=== PATIENT | female | born 1990 | race Caucasian/White ===

== ENCOUNTER 2022-09-23 11:53 | Outpatient (CLI) | payer OTHER | END 2022-09-23 12:54 | disposition home or self-care (01) | LOC: NST 11:53 | PROVIDERS: ATTEND Obstetrics & Gynecology Gynecology | DX: Z34.83 Encounter for supervision of other normal pregnancy, third trimester (principal) ==

== ENCOUNTER 2022-09-24 09:43 | Outpatient (CLI) | payer OTHER | END 2022-09-24 11:52 | disposition home or self-care (01) | LOC: NST 09:43 | PROVIDERS: ATTEND Obstetrics & Gynecology Maternal & Fetal Medicine | DX: Z34.83 Encounter for supervision of other normal pregnancy, third trimester (principal) ==

== ENCOUNTER 2022-10-24 10:15 | Inpatient (IN) | payer OTHER ==
[~2022-10-24] VITALS: Ht 154.9 cm; Wt 2.7 kg
[2022-10-30] MEDS ORDERED: CLARITIN10 M1 PO (07:49)
[2022-10-30] MEDS ORDERED: PRENA1 TRUE CO1 EACH PO (07:49)
[2022-10-30] MEDS ORDERED: PEPCID AC20 MG PO (07:50)
[2022-11-01] MEDS ORDERED: OXYC1TAB9 PO (11:01)
[2022-11-01] MEDS ORDERED: KETO10TA2 PO (11:01)
== END 2022-11-01 14:25 | disposition home or self-care (01) | DRG 788 ==
LOC: LDR 10-30 07:00 → O/R 10-30 09:06 → OB/GYN 10-30 09:06 → LDR 10-30 10:15 → OB/GYN 10-30 10:34 → LDR 10-30 13:45 → OB/GYN 11-01 14:25
PROVIDERS: ADMIT Obstetrics & Gynecology; ATTEND Obstetrics & Gynecology
PROC: 4A1HXCZ Monitoring of Products of Conception, Cardiac Rate, External Approach (ICD-10-PCS; 2022-10-30)
PROC: 10D00Z1 Extraction of Products of Conception, Low, Open Approach (ICD-10-PCS; principal; 2022-10-30 07:00)
DX: O34.211 Maternal care for low transverse scar from previous cesarean delivery (principal); Z3A.39 39 weeks gestation of pregnancy; Z37.0 Single live birth; Z20.822 Contact with and (suspected) exposure to COVID-19

== ENCOUNTER 2022-10-24 13:57 | Outpatient (CLI) | payer OTHER | END 2022-10-24 16:00 | disposition home or self-care (01) | LOC: NST 13:57 | PROVIDERS: ATTEND Obstetrics & Gynecology Gynecology | DX: Z34.83 Encounter for supervision of other normal pregnancy, third trimester (principal) ==

== ENCOUNTER 2025-01-20 06:28 | Day surgery (SDC) | payer OTHER ==
[2025-01-12 10:24] VITALS: BP 121/84
[2025-01-12 10:48] LABS: PH,URINE 7.5 (5.0-8.0); URINE APPEARANCE Clear; URINE BILIRRUBIN Negative (NEGATIVE); URINE BLOOD Negative; URINE COLOR Yellow; URINE GLUCOSE Negative (NEGATIVE); URINE KETONE Negative (NEGATIVE); URINE LEUKOCYTE Negative; URINE NITRATE Negative; URINE PROTEIN Negative (NEGATIVE); URINE UROBILINOGEN 0.2 E.U./dl
[2025-01-12 10:53] LABS: URINE BACTERIA 78.3 uL (0.0-1933); URINE EPITHELIAL CELLS 6.4 uL (0.0-38.8)
[2025-01-12 11:03] LABS: URINE RBC 1.7 uL (0.0-20.8); URINE WBC 0.4 uL (0.0-23.2)
[2025-01-12 11:08] LABS: HEMATOCRIT 40.1 % (36.0-45.00); MEAN CELL VOLUME 86.3 fL (80.00-100.00); MEAN CORPUSCULAR HEMOGLOBIN 30.2 pg (27.00-32.0); PLATELET COUNT 321 K/uL (150-450); RED BLOOD COUNT 4.65 M/uL (4.00-6.00); RED CELL DISTRIBUTION WIDTH 14.3 % (11.5-14.5)
[2025-01-12 11:21] LABS: INR 1.02; PARTIAL THROMBOPLASTIN TIME 34.7 SECONDS (22.0-34.0); PROTHROMBIN TIME 11.1 SECONDS (9.0-11.5)
[2025-01-12 11:42] LABS: ALBUMIN 4.3 gm/dL (3.4-5.0); BILIRUBIN TOTAL 0.76 mg/dL (0.3-1.2); CALCIUM 9.2 mg/dL (8.5-10.1); CREATININE SERUM 0.72 mg/dL (0.55-1.02); GFR 91.65; GLOBULINA 3.5 G/DL (2.4-3.5); POTASSIUM 3.98 mEq/L (3.5-5.1); TOTAL PROTEIN 7.8 gm/dL (6.4-8.2)
[~2025-01-20] VITALS: Ht 154.9 cm; Wt 72.6 kg
[~2025-01-20 06:28] MED LIST: CLARITIN10 M1 PO; KETO10TA2 PO; OXYC1TAB9 PO; PEPCID AC20 MG PO; PRENA1 TRUE CO1 EACH PO
[2025-01-20] MEDS ORDERED: DEXAMETHASONE SODIUM PHOSPHATE 4 MG/ML VIAL ONE (09:33)
[2025-01-20] MEDS ORDERED: DEXAMETHASONE SODIUM PHOSPHATE 4 MG/ML VIAL IV ONE (10:00)
[2025-01-20] MEDS ORDERED: MORPHINE SULFATE 4 MG/ML VIAL IV ONE (11:35)
== END 2025-01-20 13:25 | disposition home or self-care (01) ==
LOC: SURH 06:28 → CIR.AMB 06:28 → O/R 06:28 → SURH 08:30 → EDSTATUS 08:30 → CIR.AMB 13:25 → O/R 13:25 → SURH 13:45
PROVIDERS: ATTEND Surgery
DX: C73 Malignant neoplasm of thyroid gland (principal); E04.1 Nontoxic single thyroid nodule